=== PATIENT | male | born 1995 | race Two or more races ===

== ENCOUNTER → 2021-11-26 | Emergency (ER) | payer OTHER ==
[~2021-11-26] VITALS: Ht 175.3 cm; Wt 81.6 kg
== END | disposition home or self-care (01) ==
LOC: ER 09:14
DX: H66.92 Otitis media, unspecified, left ear (principal)

== ENCOUNTER 2022-05-27 08:16 | Emergency (ER) | payer OTHER ==
[~2022-05-27] VITALS: Ht 175.3 cm; Wt 86.2 kg
== END 2022-05-27 13:40 | disposition home or self-care (01) ==
LOC: ER 08:16
DX: B34.9 Viral infection, unspecified (principal); Z91.013 Allergy to seafood; Z20.822 Contact with and (suspected) exposure to COVID-19

== ENCOUNTER → 2024-06-28 | Emergency (ER) | payer OTHER ==
[~2024-06-28] VITALS: Ht 175.3 cm; Wt 98.4 kg
[~2024-06-28] MED LIST: GUAIFENESIN 200 MG/10 ML BLIST.PACK PO ONE; KETOROLAC TROMETHAMINE 30 MG VIAL IM ONE
[2024-06-28 21:26] LABS: HEMATOCRIT 39.8 % (39.0-48.0); HEMOGLOBIN 14.1 g/dL (13-16.00); MEAN CELL VOLUME 87.6 fL (80.0-100.00); MEAN CORPUSCULAR HEMOGLOBIN 30.9 pg (27.00-32.0); MEAN CORPUSCULAR HGB CONC 35.3 g/dl (32.0-36.0); PLATELET COUNT 326 K/uL (150-450); RED BLOOD COUNT 4.55 M/uL (4.00-6.00); RED CELL DISTRIBUTION WIDTH 13.2 % (11.5-14.5)
[2024-06-28 22:09] LABS: INFLUENZA A AG NEGATIVE (NEGATIVE)
[2024-06-28 22:36] LABS: COVID-19 AG NEGATIVE (NEGATIVE)
== END | disposition home or self-care (01) ==
LOC: ER 20:17
PROVIDERS: General Practice
DX: B34.9 Viral infection, unspecified (principal); R53.81 Other malaise; Z20.822 Contact with and (suspected) exposure to COVID-19; Z91.013 Allergy to seafood